=== PATIENT | male | born 1965 | race Caucasian/White ===

== ENCOUNTER 2021-01-27 16:46 | Emergency (ER) | payer OTHER ==
[2021-01-27] MEDS ORDERED: FIORICET1 EACH PO (21:29)
== END 2021-01-27 21:40 | disposition home or self-care (01) ==
LOC: FER 16:46
DX: G43.909 Migraine, unspecified, not intractable, without status migrainosus (principal); E10.9 Type 1 diabetes mellitus without complications; I48.91 Unspecified atrial fibrillation; Z79.82 Long term (current) use of aspirin; Z79.84 Long term (current) use of oral hypoglycemic drugs
CPT/HCPCS: 70450; J1100; J1885; J2405; J7030